=== PATIENT | male | born 1980 | race Caucasian/White ===

== ENCOUNTER 2017-09-17 17:54 | Emergency (ER) | payer BC ==
[2017-09-17] MEDS ORDERED: Morphine 4 MG/ML VIAL ONE ×2 (18:22→19:11)
[2017-09-17] MEDS ORDERED: Ondansetron HCl/PF 4 MG/2 ML Vial ONE (18:23)
[2017-09-17] MEDS ORDERED: Ketorolac Tromethamine 30 MG/ML VIAL ONE ×2 (18:23→19:06)
[2017-09-17 18:46] LABS: #Basophils 0.1 thou/uL (0.0-0.2); #Eosinphils 0.1 thou/uL (0.0-0.7); #Lymphocytes 4.5 thou/uL (1.20-3.40); #Monocytes 0.7 thou/uL (0.11-0.59); #Neutrophils 6.5 thou/uL (1.40-6.50); %Basophils 0.8 % (0.0-1.0); %Eosinophils 0.7 % (0.0-10.0); %Lymphocytes 37.9 % (21.0-51.0); Hematocrit 45.8 % (42.0-52.0); Mean Platelet Volume 6.2 fL (7.4-10.4); Red Blood Cell (RBC) Count 4.97 mill/uL (4.70-6.10)
[2017-09-17 19:15] LABS: ALT (SGPT) 22 U/L (8-55); AST (SGOT) 17 U/L (5-34); Alkaline Phosphatase 70 U/L (40-150); Anion Gap 16 mmol/L (10-20); BUN (Urea Nitrogen) 20 mg/dL (8.9-20.6); Bilirubin, Total 0.9 mg/dL (0.2-1.2); Calc. Creatinine Clearance 0 mL/min (70-130); Calcium 9.5 mg/dL (7.8-10.44); Carbon Dioxide 22 mmol/L (22-29); Chloride 104 mmol/L (98-107); Estimated GFR-MDRD 76; Globulin 3.3 g/dL (2.4-3.5); Protein, Total 7.5 g/dL (6.0-8.3)
--- NOTE | 2017-09-17 20:30 | CT ---
CT ABDOMEN NONCONTRAST CT PELVIS NONCONTRAST: (urolithiasis protocol) DATE: 09/17/17 HISTORY: 36-year-old male with left flank pain. COMPARISON: 06/15/16. TECHNIQUE: IV injection of iodinated contrast media: none Oral contrast media: none FINDINGS: Other than for urolithiasis, the lack of IV and oral contrast limits the evaluation. There is a levoscoliosis of the lumbar spine. Director Trial view demonstrates dextroscoliosis of the thoracic spine. There is a 3 mm calculus at a right renal lower pole calyx. There is no calculus within the l eft kidney. There is a new finding of an approximately 3 mm tiny calculus lodged at the left ureterov esical junction in the bladder, causing mild left hydroureteronephrosis. The previous CT showed what was then a 3.7 mm calculus in the distal right ureter, very close to the UVJ. This calculus has grown slightly, and currently 5 x 3 x 5 mm. Despite this, there is no right sided hydroureteronephrosis. Hepatic attenuation is diffusely low, consistent with fatty liver. Lung bases are clear. No pleural e ffusion. No ascites or pneumoperitoneum. Within the limitations of noncontrast CT, no gross abnormali ty is identified involving abdominal aorta, adrenals, pancreas, or spleen. No small bowel dilatation. Normal appendix. No signs of acute colonic diverticulitis. IMPRESSION: 1. Positive for low grade left obstructive uropathy: a 3 mm calculus lodged at the left ureterov esical junction, causing mild left hydroureteronephrosis. 2. Interval growth of the contralateral very distal right ureteral calculus, currently measuring 5 mm, which surprisingly still does not cause a right sided obstructive uropathy. 3. Mild nephrolithiasis consisting of a tiny right 3 mm lower pole calculus. 4. Mild S-shaped scoliosis. 5. Hepatic steatosis. YUMI Shafer POS: TOY
== END 2017-09-17 19:27 | disposition home or self-care (01) ==
LOC: ERS 17:54
DX: N13.2 Hydronephrosis with renal and ureteral calculous obstruction (principal)
CPT/HCPCS: 74176; 80053; 85025; 96361; 96374; 96375; J1885; J2270; J2405

== ENCOUNTER 2018-01-05 07:27 | Outpatient (CLI) | payer BC ==
[2018-01-05] MEDS ORDERED: ISOVUE-370 76%-LOCM 1 ML ONE (14:53)
== END 2018-01-05 07:28 | disposition home or self-care (01) ==
LOC: BICCT 07:27
PROVIDERS: ATTEND Urology
DX: N20.2 Calculus of kidney with calculus of ureter (principal); S22.31XD Fracture of one rib, right side, subsequent encounter for fracture with routine healing
CPT/HCPCS: 74178

== ENCOUNTER 2018-01-17 12:07 | Outpatient (CLI) | payer BC ==
[2018-01-17 12:42] LABS: Hemoglobin 15.4 g/dL (14.0-18.0); Mean Corpuscular HGB CONC 33.2 g/dL (32.0-36.0); Mean Corpuscular Hemoglobin 30.7 pg (27.0-31.0); Mean Corpuscular Volume 92.4 fl (80.0-94.0); Mean Platelet Volume 6.5 fL (7.4-10.4); Platelet Count 301 thou/uL (130-400); RBC Distribution Width 11.7 % (11.5-14.5); Red Blood Cell (RBC) Count 5.03 mill/uL (4.70-6.10); White Blood Cell (WBC) Count 7.2 thou/uL (4.8-10.8)
[2018-01-17 13:05] LABS: Anion Gap 11 mmol/L (10-20); BUN (Urea Nitrogen) 16 mg/dL (8.9-20.6); Calc. Creatinine Clearance 0 mL/min (70-130); Calcium 9.6 mg/dL (7.8-10.44); Carbon Dioxide 28 mmol/L (22-29); Chloride 103 mmol/L (98-107); Estimated GFR-MDRD 89; Glucose 87 mg/dL (70-105); Potassium 4.3 mmol/L (3.5-5.1); Sodium 138 mmol/L (136-145)
== END 2018-01-17 12:08 | disposition home or self-care (01) ==
LOC: LABBT 12:07
PROVIDERS: ATTEND Urology
DX: Z01.818 Encounter for other preprocedural examination (principal); N20.1 Calculus of ureter
CPT/HCPCS: 80048; 81001; 85027

== ENCOUNTER 2018-01-25 05:57 | Day surgery (SDC) | payer BC ==
[2018-01-17 12:13] VITALS: BMI 27.3
[2018-01-25] MEDS ORDERED: CEFAZOLIN/Water 2 GM/20 ML SYRINGE ONE (06:07)
[2018-01-25] MEDS ORDERED: Famotidine/PF 20 mg/2ml Vial ONE (06:34)
[2018-01-25] MEDS ORDERED: Fentanyl 250 MCG/5 ML VIAL ONE (06:34)
[2018-01-25] MEDS ORDERED: Ondansetron HCl/PF 4 MG/2 ML Vial ONE ×2 (06:34→16:15)
[2018-01-25] MEDS ORDERED: Iothalamate Meglumine 60% 50 ML VIAL FS ONE (06:41)
[2018-01-25] MEDS ORDERED: Midazolam HCl 2 mg/2 ml Vial ONE (07:13)
[2018-01-25] MEDS ORDERED: Phenazopyridine HCl 97.5 MG TABLET ONE (09:46)
[2018-01-25] MEDS ORDERED: Promethazine HCl 25 MG/ML VIAL ONE (10:28)
--- NOTE | 2018-01-25 11:03 | OP ---
DATE OF PROCEDURE: 01/25/2018 PREOPERATIVE DIAGNOSIS: Right ureteral stone. POSTOPERATIVE DIAGNOSIS: Right ureteral stone. PROCEDURE: Cystoscopy, right ureteroscopy, holmium laser lithotripsy, stone basketing, stent placeme nt 6 x 28. COMPLICATIONS: None. BLOOD LOSS: Minimal. SPECIMEN: Stone. INDICATIONS: The patient is a 37-year-old male who I saw in the office and noted to have a distal ri ght ureteral stone and imaging existing from 2016. He has had minimal to no issues with this, but th e stone did appear to be present still, so we discussed definitive therapy for extraction. TECHNIQUE: The patient was brought to the room by Anesthesia, laid on the table in supine position. After receiving general anesthetic, legs were placed in lithotomy position, perineum prepped in ster ile fashion. The left leg was elevated and the right leg was lowered and then cystoscopy was perform ed. Inspection of the bladder revealed no defects or lesions. The right ureteral orifice was intuba anupam with the aid of a wire and then the Pollack catheter was advanced all the way up to the renal pel vis before doing a retrograde pyelogram so as not to push the stone any more proximal. A 6 x 28 was chosen for the end of the case and a wire was left in place and a ureteral dilating balloon was used to dilate the right ureteral orifice to 12 mmHg pressure. This was then removed leaving the wire in place. Scope was broken apart. Bladder drained and removed carefully. The rigid ureteroscope was p laced in and up to the level of the stone was easily noted. Laser lithotripsy occurred and then ston e basketing was used to drop the stone fragments into the bladder. A larger fragment was extracted a ll the way out. Another inspection of the ureter showed couple fragments remaining one that was not able to be basketed, so the holmium was with laser lithotripsy occurred again on this fragment and th en it was extracted, so a final path of the ureter revealed no concerning fragments with mild uretera l contusion from the laser fiber noted. The rigid ureteroscope was removed fully and then the cystos cope was placed back in. All the stone fragments were extracted and sent for specimen together. The scope was taken back out and back fed over the wire and the 6 x 28 double J was placed with good coi l visualized in the bladder via cystoscopy and the coil was not fully rounded as it was up on the upp er pole slightly, but still in the adequate position and I felt this would correct itself easily. So at this point, the scope was broken apart. Bladder drained and removed carefully leaving the string intact, which was then secured to the patient's penis. The patient tolerated the procedure well and was then awakened and transferred to the PACU in stable condition.
[2018-01-25] MEDS ORDERED: Lidocaine 1% PF 5 ML VIAL ONE (16:15)
[2018-01-25] MEDS ORDERED: PROPOFOL 200 MG/20 ML VIAL ONE (16:15)
[2018-01-28 10:21] LABS: CA Oxalate Monohydrate 97 % (.); Color Brown (.)
== END 2018-01-25 12:02 | disposition home or self-care (01) ==
LOC: SDC 05:57
PROVIDERS: ATTEND Urology
PROC: 0TF68ZZ Fragmentation in Right Ureter, Via Natural or Artificial Opening Endoscopic (ICD-10-PCS; principal; 2018-01-25)
PROC: 0T768DZ Dilation of Right Ureter with Intraluminal Device, Via Natural or Artificial Opening Endoscopic (ICD-10-PCS; principal; 2018-01-25)
DX: N20.1 Calculus of ureter (principal); Z79.899 Other long term (current) drug therapy; Z87.442 Personal history of urinary calculi
CPT/HCPCS: 76000; 82365; 88300; 96374; C1758; J2001; J2250; J2405; J2550; J2704; J3010; Q9961; S0028

== ENCOUNTER 2019-02-09 08:43 | Observation (INO) | payer BC ==
[2019-02-09] MEDS ORDERED: Ondansetron PF 4 MG/2 ML Vial ONE (09:31)
[2019-02-09] MEDS ORDERED: Promethazine HCl 25 MG/ML VIAL ONE (09:31)
[2019-02-09 09:57] LABS: #Lymphocytes 0.5 thou/uL (1.20-3.40); #Monocytes 0.4 thou/uL (0.11-0.59); #Neutrophils 11.8 thou/uL (1.40-6.50); %Basophils 0.3 % (0.0-1.0); %Eosinophils 0.4 % (0.0-10.0); %Lymphocytes 4.2 % (21.0-51.0); %Monocytes 2.9 % (0.0-10.0); %Neutrophils 92.4 % (42.0-75.0); Hemoglobin 15.8 g/dL (14.0-18.0); Mean Corpuscular HGB CONC 34.2 g/dL (32.0-36.0); Mean Corpuscular Hemoglobin 30.7 pg (27.0-31.0); Mean Corpuscular Volume 89.7 fL (78.0-98.0); Mean Platelet Volume 6.5 fL (7.4-10.4); Platelet Count 316 thou/uL (130-400); RBC Distribution Width 11.8 % (11.5-14.5); Red Blood Cell (RBC) Count 5.15 mill/uL (4.70-6.10); White Blood Cell (WBC) Count 12.7 thou/uL (4.8-10.8)
[2019-02-09 10:19] LABS: ALT (SGPT) 22 U/L (8-55); AST (SGOT) 20 U/L (5-34); Albumin 4.6 g/dL (3.5-5.0); Alkaline Phosphatase 82 U/L (40-150); Anion Gap 16 mmol/L (10-20); BUN (Urea Nitrogen) 19 mg/dL (8.9-20.6); Bilirubin, Total 1.1 mg/dL (0.2-1.2); Calc. Creatinine Clearance 0 mL/min (70-130); Calcium 10.1 mg/dL (7.8-10.44); Carbon Dioxide 21 mmol/L (22-29); Chloride 105 mmol/L (98-107); Estimated GFR-MDRD 85; Globulin 3.4 g/dL (2.4-3.5); Glucose 128 mg/dL (70-105); Potassium 4.1 mmol/L (3.5-5.1); Sodium 138 mmol/L (136-145)
--- NOTE | 2019-02-09 10:19 | RAD ---
EXAM: CHEST ONE VIEW: History: Vomiting, sore throat, cough, abdominal pain, back pain. FINDINGS: Thoracic spine dextroscoliosis. Heart size is within normal limits. No confluent pneumonia, overt alyson ma, or pleural effusion. IMPRESSION: No acute intrathoracic disease. POS: C
[2019-02-09] MEDS ORDERED: cefTRIAXone\\ROCEPHIN 1 GM VIAL ONE (10:27)
[2019-02-09] MEDS ORDERED: Azithromycin 500 MG VIAL ONE (11:01)
[2019-02-09 11:07] LABS: Bilirubin Negative (Negative); Blood, Urine Negative (Negative); Clarity CLEAR (Clear); Glucose, Urine (Dipstick) Negative (Negative); Leukocyte Negative (Negative); Nitrite Negative (Negative); Protein, Urine (Dipstick) 30 mg/dL (Neg-Trace); Specific Gravity, Urine 1.027 (1.002-1.036); pH, Urine 8.5 (5.0-9.0)
[2019-02-09] MEDS ORDERED: Acetaminophen 500 MG TAB ONE (11:07)
[2019-02-09 11:13] LABS: Bacteria/HPF None Seen HPF (None Seen); Hyaline Casts/LPF 0-3 HYALINE CAST LPF (0-3 Hyaline); Pathc Cast-AUWi Flag 0.13 (0-2.49); RBC/HPF None Seen HPF (0-3); Squamous Epithelial 0-3 HPF (0-3); WBC/HPF None Seen HPF (0-3)
[2019-02-09] MEDS ORDERED: Ondansetron PF 4 MG/2 ML Vial IVP PRN (16:53)
[2019-02-09] MEDS ORDERED: Acetaminophen 325 MG TAB PO PRN (16:53)
[2019-02-09] MEDS ORDERED: Guaifenesin DM 100-10/5 ML UDCUP PO PRN (16:53)
[2019-02-09] MEDS ORDERED: Ibuprofen 600 MG TAB PO PRN (17:19)
[2019-02-09] MEDS: Sodium Chloride 0.9% 1,000 ML IV SCH ×2 (18:38)
[2019-02-09] MEDS: Famotidine 20 MG TAB PO SCH (20:57)
--- NOTE | 2019-02-09 21:05 | HP ---
CHIEF COMPLAINT: Sore throat, cough, vomiting. HISTORY OF PRESENT ILLNESS: The patient is a generally healthy 38-year-old male with no significant past medical history, who presented to the ER today with a 2-week history of upper respiratory infection symptoms. Initially , his symptoms began with a sore throat, and he also had some associated sinus symptoms which included sinus drainage. He was seen at [facility] about a week ago, and was given oral antibiotics of Augmentin, along with a steroid shot. He was told to use [id number] Flonase as well as Karla as well. The patient states that for 2 days he was feeling well. He was able to play with his kids outside and do some yardwork, and he went to work on Wednesday as scheduled. On Wednesday, he began to notice that his sore throat was returning. The next day, it began to get worse along with associated cough. Essentially, his cough is continued and be productive at times with yellow and green sputum. Today, his cough was associated with some vomiting. He also felt very weak and dizzy, and so presented to the ER for further workup and treatment. The patient has denied any fevers at home. He has denied any body aches. Besides the vomiting episode today, he has not had any other abdominal symptoms such as diarrhea or abdominal pain. On arrival to the ER, the patient was noted to have a temperature of 100.7, his pulse was 100. Lab work notable for a white count of over 12,000 with a left shift. His chest x-ray was clear of any infiltrates or acute disease process. The patient meets sepsis criteria, and along with the fact that he has failed outpatient treatment, he will be admitted to the Hospitalist Service for further treatment. REVIEW OF SYSTEMS: A 12-point review of systems is performed and is negative except that stated above. ALLERGIES: NO KNOWN DRUG ALLERGIES. HOME MEDICATIONS: The patient takes [id number] Karla Allergy along with Flonase. He has been taking Augmentin for the past week. PAST MEDICAL AND SURGICAL HISTORY: The patient has a history of nephrolithiasis , status post lithotripsy last year. Otherwise, no medical history. 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 He is and has two young children. He drinks alcohol occasionally. No smoking or illicit drug use. FAMILY HISTORY: Noncontributory. PHYSICAL EXAMINATION: VITAL SIGNS: Blood pressure is 105/61, pulse is 90, temperature os 101.2, and O2 saturation is 96% on room air. GENERAL: The patient is a male, who appears his stated age, appropriate build, in no acute distress. HEENT: Head is atraumatic and normocephalic. Examination of his pharynx shows no erythema or petechiae. His mucous membranes are moist. Extraocular movements intact. NECK: Supple. No lymphadenopathy. No JVD. Trachea is midline. CV: S1 and S2. Regular rate and rhythm. No appreciable murmurs, rubs, or gallops. LUNGS: Regular respiratory rate and pattern. Clear to auscultation bilaterally. ABDOMEN: Soft. Positive bowel sounds. Nontender. EXTREMITIES: No edema. +2 DP pulses bilaterally. SKIN: Warm and dry. No rashes or discolorations. NEUROLOGIC: Alert and oriented x3. Cranial nerves 2 through 12 are intact. The patient is nonfocal. LABORATORY DATA: White blood cell count 12.7, hemoglobin 15.8, hematocrit 46.1, Sodium 138, potassium 4.1, chloride 105, carbon dioxide 21, BUN 19, creatinine 0.98, GFR 85, and glucose 128. Lactic acid 2.8, which is trended down to 1 now. Liver function enzymes within normal limits. Urinalysis largely unremarkable. Chest x-ray shows no acute intrathoracic process or infiltrate. ASSESSMENT: 1. Acute febrile illness with associated pharyngitis and productive cough and nausea, failing outpatient therapy. 2. Sepsis secondary to above, criteria met: T-max 101, leukocytosis with left shift, and mild tachycardia. PLAN: We will admit the patient for IV fluid resuscitation along with empiric IV antibiotic coverage. We will continue IV Rocephin and Zithromax. We will continue supportive care with antipyretics and antiemetics. We will perform repeat flu test and pharyngeal swabbing and culture. Further recommendations based on hospital course. The care of this patient has been discussed with Dr. Zimmer, who agrees with the above. Job ID: [id number] [facility]
[2019-02-10] MEDS: Sodium Chloride 0.9% 1,000 ML IV SCH ×4 (02:04→23:39)
[2019-02-10 07:37] LABS: #Eosinphils 0.1 thou/uL (0.0-0.7); #Lymphocytes 1.3 thou/uL (1.20-3.40); #Monocytes 0.8 thou/uL (0.11-0.59); #Neutrophils 4.7 thou/uL (1.40-6.50); %Basophils 0.4 % (0.0-1.0); %Eosinophils 0.9 % (0.0-10.0); %Lymphocytes 19.4 % (21.0-51.0); %Neutrophils 68.3 % (42.0-75.0); Hemoglobin 13.5 g/dL (14.0-18.0); Mean Corpuscular HGB CONC 33.7 g/dL (32.0-36.0); Mean Corpuscular Volume 92.2 fL (78.0-98.0); Mean Platelet Volume 6.5 fL (7.4-10.4); Platelet Count 243 thou/uL (130-400); Red Blood Cell (RBC) Count 4.35 mill/uL (4.70-6.10); White Blood Cell (WBC) Count 6.9 thou/uL (4.8-10.8)
[2019-02-10] MEDS: cefTRIAXone\\ROCEPHIN 1 GM in Sodium Chloride 0.9% 100 ML IVPB SCH (10:20)
[2019-02-10] MEDS: Famotidine 20 MG TAB PO SCH ×2 (10:20→20:03)
[2019-02-10] MEDS: Azithromycin 500 MG in Sodium Chloride 0.9% 250 ML 250 ML IVPB SCH (11:45)
[2019-02-10] MEDS ORDERED: Sodium Chloride 0.9% 10 ML ONE (12:01)
--- NOTE | 2019-02-10 14:13 | PDOC.PN ---
- Subjective Encounter Start Date: 02/10/19 Encounter Start Time: 14:00 Subjective: Patient was examined twice today -: Initially feeling better but this pm, feeling achy and feverish -: Reports throat feels "a little better". - Objective Resuscitation Status - Order Detail: 02/09/19 16:53 Resuscitation Status Routine Co-Sign Provider: Resuscitation Status: FULL: Full Resuscitation Vital Signs & Weight: Vital Signs (12 hours) Temp Pulse Resp BP BP BP Pulse Ox 02/10/19 12:00 99.0 F 81 20 113/68 02/10/19 08:33 99.0 F 78 20 112/70 96 02/10/19 04:35 98.8 F 72 20 107/70 107/70 97 Weight Weight 79.4 kg I&O: 02/09/19 02/10/19 02/11/19 06:59 06:59 06:59 Intake Total 2875 Output Total 725 Balance 2150 Result Diagrams: 02/10/19 07:11 02/09/19 09:34 Phys Exam - Physical Examination HEENT: PERRLA, moist MMs Neck: no nodes Respiratory: clear to auscultation bilateral Cardiovascular: RRR, no significant murmur Gastrointestinal: soft Musculoskeletal: no edema, pulses present Neurological: normal sensation, moves all 4 limbs Lymphatic: no nodes Psychiatric: normal affect, A&O x 3 Skin: cap refill <2 seconds Dx/Plan (1) Sepsis Code(s): A41.9 - SEPSIS, UNSPECIFIED ORGANISM Status: Acute (2) Acute pharyngitis Code(s): J02.9 - ACUTE PHARYNGITIS, UNSPECIFIED Status: Acute (3) Bronchitis Code(s): J40 - BRONCHITIS, NOT SPECIFIED ACUTE OR CHRONIC Status: Acute - Plan cont current plan of care, continue antibiotics Continue IV fluids, ABX -: Awaiting Viral panel results -: Recheck labs in AM, will continue to monitor * .
[2019-02-10 14:50] LABS: MONO NEGATIVE CONTROL ZONE White (Negative) (White); MONO POSITIVE CONTROL Pink Line (Positive) (PINK/RED); Mononucleosis NEGATIVE (NEGATIVE)
[2019-02-11] MEDS ORDERED: Fluticasone Propionate Nasal Spray 16 gm Bottle NASAL PRN (00:53)
[2019-02-11 08:27] VITALS: BP 101/62; TEMP 98
[2019-02-11] MEDS: Sodium Chloride 0.9% 1,000 ML IV SCH (08:48)
[2019-02-11] MEDS: Famotidine 20 MG TAB PO SCH (08:49)
[2019-02-11] MEDS: cefTRIAXone\\ROCEPHIN 1 GM in Sodium Chloride 0.9% 100 ML IVPB SCH (09:53)
[2019-02-11] MEDS: Azithromycin 500 MG in Sodium Chloride 0.9% 250 ML 250 ML IVPB SCH (11:01)
== END 2019-02-11 13:35 | disposition home or self-care (01) ==
LOC: ERS 08:43 → 3SE 13:57 → T4-B 02-10 17:07
PROVIDERS: ADMIT Internal Medicine; ATTEND Internal Medicine
DX: A41.9 Sepsis, unspecified organism (principal); J02.9 Acute pharyngitis, unspecified; D72.829 Elevated white blood cell count, unspecified; R00.0 Tachycardia, unspecified; Z79.51 Long term (current) use of inhaled steroids; Z79.899 Other long term (current) drug therapy
CPT/HCPCS: 36415; 71045; 80053; 81003; 81015; 83605; 85025; 86308; 87040; 87070; 87430; 87633; 87804; 93005; 96361; 96365; 96366; 96367; 96375; G0378; J0456; J0696; J2405; J2550; J3490; J7050

== ENCOUNTER 2023-10-20 06:29 | Day surgery (SDC) | payer BC ==
[2023-10-20 07:22] LABS: #Eosinphils 0.1 thou/uL (0.0-0.7); #Monocytes 0.9 thou/uL (0.11-0.59); #Neutrophils 6.4 thou/uL (1.40-6.50); %Basophils 0.4 % (0.0-1.0); %Eosinophils 0.8 % (0.0-10.0); %Lymphocytes 27.9 % (21.0-51.0); %Monocytes 8.7 % (0.0-10.0); %Neutrophils 61.9 % (42.0-75.0); Hematocrit 40.5 % (42.0-52.0); Hemoglobin 13.6 g/dL (14.0-18.0); Mean Corpuscular HGB CONC 33.6 g/dL (32.0-36.0); Mean Corpuscular Hemoglobin 30.6 pg (27.0-31.0); Mean Platelet Volume 8.8 fL (7.4-10.4); Platelet Count 267 10x3/uL (130-400); RBC Distribution Width 13.3 % (11.5-14.5); Red Blood Cell (RBC) Count 4.45 mill/uL (4.70-6.10); White Blood Cell (WBC) Count 10.3 10x3/uL (4.8-10.8)
[2023-10-20 07:43] LABS: ALT (SGPT) 20 U/L (8-55); AST (SGOT) 16 U/L (5-34); Albumin 3.6 g/dL (3.5-5.0); Alkaline Phosphatase 72 U/L (40-110); Anion Gap 10 mmol/L (10-20); BUN (Urea Nitrogen) 23 mg/dL (8.9-20.6); Calc. Creatinine Clearance 0 mL/min (70-130); Calcium 8.1 mg/dL (7.8-10.44); Carbon Dioxide 25 mmol/L (22-29); Chloride 108 mmol/L (98-107); Estimated GFR 76; Globulin 2.5 g/dL (2.4-3.5); Glucose 89 mg/dL (70-105); Potassium 3.9 mmol/L (3.5-5.1); Protein, Total 6.1 g/dL (6.0-8.3); Sodium 139 mmol/L (136-145)
[2023-10-20 09:14] LABS: Bacteria/HPF None Seen HPF (None Seen); Bilirubin Negative (Negative); Blood, Urine 1+ (Negative); Clarity Clear (Clear); Glucose, Urine (Dipstick) Normal (Negative); Ketone, Urine Negative (Negative); Leukocyte Negative Leu/uL (Negative); Nitrite Negative (Negative); Protein, Urine (Dipstick) 10 mg/dL (Neg-Trace); RBC/HPF 0-3 HPF (0-3); Specific Gravity, Urine 1.023 (1.002-1.036); Squamous Epithelial None Seen HPF (0-3); Urobilinogen Normal mg/dL (Less than 2); pH, Urine 5.5 (5.0-9.0)
[2023-10-20] MEDS ORDERED: Iopamidol 30 ML ONE (09:26)
[2023-10-20] MEDS ORDERED: Lidocaine 2% PF 5 ML VIAL ONE (09:39)
[2023-10-20] MEDS ORDERED: PROPOFOL 20 ML ONE (09:39)
[2023-10-20] MEDS ORDERED: Ondansetron PF 4 MG/2 ML Vial ONE (09:53)
[2023-10-20] MEDS ORDERED: Dexamethasone 20 MG/5 ML VIAL ONE (09:53)
[2023-10-20] MEDS ORDERED: ePHEDrine Sulfate 50 MG/10 ML VIAL ONE (09:54)
[2023-10-20] MEDS ORDERED: Ketorolac Tromethamine 30 MG (1 mL) VIAL ONE (10:12)
[2023-10-20] MEDS ORDERED: Tamsulosin HCl 0.4 MG CAP ONE (10:37)
[2023-10-20] MEDS ORDERED: Phenazopyridine HCl 100 MG TAB ONE (10:38)
[2023-10-20] MEDS ORDERED: Oxybutynin 5 MG TAB ONE (10:39)
== END 2023-10-20 11:43 | disposition home or self-care (01) ==
LOC: ERS 06:29 → SDC 08:00
PROVIDERS: ATTEND Urology
PROC: 0T773DZ Dilation of Left Ureter with Intraluminal Device, Percutaneous Approach (ICD-10-PCS; principal; 2023-10-20)
DX: N13.2 Hydronephrosis with renal and ureteral calculous obstruction (principal); M41.9 Scoliosis, unspecified; Z98.890 Other specified postprocedural states
CPT/HCPCS: 36415; 74420; 80053; 81001; 85025; 87086; 99284; C2617; J0696; J1100; J1885; J2001; J2405; J2704; J3490; Q9967

== ENCOUNTER 2023-10-27 12:06 | Outpatient (CLI) | payer BC ==
[2023-10-27 13:28] LABS: Bilirubin Neg (Negative); Blood, Urine 250 (Negative); Clarity Slightly Cloudy (Clear); Glucose, Urine (Dipstick) Normal (Negative); Ketone, Urine Negative (Negative); Leukocyte 100 (Negative); Nitrite Negative (Negative); Protein, Urine (Dipstick) 30 mg/dl (Neg-Trace); Specific Gravity, Urine 1.015 (1.005-1.030); Urobilinogen Normal mg/dL (Less than 2)
[2023-10-27 13:41] LABS: RBC/HPF 21-50 HPF (0-3)
[2023-10-27 13:43] LABS: Bacteria/HPF 2+ HPF (None Seen)
[2023-10-27 13:46] LABS: Mucous/LPF 1+ LPF (<2+); Transitional Epithelial 0-3 HPF (None Seen)
[2023-10-27 13:52] LABS: Hematocrit 49.2 % (38.8-50.0); Hemoglobin 16.6 g/dL (13.5-17.5); Mean Corpuscular HGB CONC 33.7 g/dL (32.0-36.0); Mean Platelet Volume 8.8 fl (7.4-10.4); Platelet Count 358 10x3/uL (150-450); RBC Distribution Width 12.8 % (11.5-14.5); Red Blood Cell (RBC) Count 5.53 10x6/uL (4.32-5.72); White Blood Cell (WBC) Count 12.1 10x3/uL (3.5-10.5)
[2023-10-27 14:37] LABS: PTT 29.2 sec (22.0-33.0); Prothrombin Time 10.5 sec (9.5-12.1)
[2023-10-27 14:39] LABS: Anion Gap 14 mmol/L (10-20); BUN (Urea Nitrogen) 17 mg/dL (8.9-20.6); Calc. Creatinine Clearance 0 mL/min (70-130); Calcium 9.5 mg/dL (7.8-10.44); Carbon Dioxide 27 mmol/L (22-29); Chloride 100 mmol/L (98-107); Estimated GFR 89; Glucose 89 mg/dL (70-105); Potassium 4.5 mmol/L (3.5-5.1); Sodium 136 mmol/L (136-145)
== END 2023-10-27 12:07 | disposition home or self-care (01) ==
LOC: LABBT 12:06
PROVIDERS: ATTEND Urology
DX: Z01.818 Encounter for other preprocedural examination (principal); N20.0 Calculus of kidney
CPT/HCPCS: 80048; 81001; 85027; 85610; 85730; 87086; 93005; 93010

== ENCOUNTER 2025-06-08 07:29 | Outpatient (CLI) | payer BC | END 2025-06-08 07:30 | disposition home or self-care (01) | LOC: BICCT 07:29 | PROVIDERS: ATTEND Urology | DX: N20.0 Calculus of kidney (principal) | CPT/HCPCS: 74176 ==